=== PATIENT | female | born 1985 | race Caucasian/White ===

== ENCOUNTER 2021-02-03 14:29 | Emergency (ER) | payer OTHER ==
[~2021-02-03] VITALS: Ht 172.7 cm; Wt 61.8 kg
[2021-02-03] MEDS ORDERED: IOHEXOL 300 MG/ML 75 ML VIAL. IV ONE (15:00)
[2021-02-03] MEDS ORDERED: IV NORMAL SALINE 1,000ML 1,000 ML IV ONE (15:00)
[2021-02-03] MEDS ORDERED: DEXAMETHASONE SOD PHOS 10 MG/ML VIAL. IVP ONE (15:00)
[2021-02-03] MEDS ORDERED: KETOROLAC 15 MG/ML VIAL. IVP ONE (15:00)
--- NOTE | 2021-02-03 15:00 | PHYS DOC ---
Past History Past Medical History: No Pertinent History Past Surgical History: No Surgical History Smoking: Non-smoker Alcohol Use: None Drug Use: None General Adult EDM: Chief Complaint: SORE THROAT HPI: HPI: 35-year-old female presents to the emergency department complaining of sore throat for the past 7 days. She reports that she went to an urgent care over the weekend who gave her steroids that did not help her throat pain. She was never tested for strep throat and not put on any antibiotics. She reports progressive pain on the right side of her mouth extending into her jaw as well as increased pain with swallowing, today had problems with drinking some fluids. She has not noticed any voice change. She has a child who recently was diagnosed with vpov-cpul-tnx-mouth disease. The patient denies nausea, v omiting, fever, chills, chest pain, shortness of breath, or any other complaints. Patient is driving home. Review of Systems: Review of Systems: ROS otherwise negative except for what was mentioned in HPI Current Medications: Current Meds: Current Medications Medications (Trade) Dose Ordered Sig/Jen Start Time Stop Time Status Last Admin Dose Admin Dexamethasone Sodium Phosphate (Decadron) 10 mg 1X ONCE 02/03/21 15:00 02/03/21 15:01 UNV Allergies: Allergies: Allergies Coded Allergies Type Severity Reaction Last Updated Verified No Known Drug Allergies 02/03/21 No Physical Exam: PE: Constitutional: No acute distress, non-toxic appearance. HENT: Atraumatic, bilateral external ears normal, nose normal. Oropharynx with tonsilar and peritonsilar erythema, exudates seen in the right tonsil, there is left uvular shift, possible abscess is seen in the right peritonsilar space, left appears clear. Trismus is noted. Eyes: PERRLA, EOMI, conjunctiva normal, no discharge. Neck: Normal range of motion, supple, no stridor. Cardiovascular: Heart rate regular rhythm. 2+ radial pulses Lungs & Thorax: No respiratory distress, symmetrical expansion. Skin: Warm, dry. Extremities: No tenderness, no cyanosis, ROM intact, no edema. Neurologic: Alert and oriented X 3, normal motor function, normal sensory function, no focal deficits noted. Non ataxic gait. GCS 15. Psychologic: Affect normal, judgment normal, mood normal. Current Patient Data: Labs: Laboratory Tests Test 02/03/21 15:10 02/03/21 16:20 Group A Streptococcus Rapid Negative (NEGATIVE) Urine Test Negative (NEG) Vital Signs: Vital Signs Date Time Temp Pulse Resp B/P (MAP) Pulse Ox O2 Delivery O2 Flow Rate FiO2 02/03/21 14:30 97.9 56 18 111/68 (82) 98 Room Air Radiology/Procedures: Radiology/Procedures: CT neck with contrast History: Right-sided throat pain with shift of the uvula Axial helical images of the neck were obtained after the administration of 75 cc IV Isovue-370 contrast. Axial coronal and sagittal reconstruction was performed for a CT soft tissues neck with contrast. This study was performed to exclude possible abscess. Findings: There is an irregular peripherally enhancing fluid collection in the right palatine tonsil that measures 4.0 x 3.4 x 3.4 cm. There is no air. There is no prevertebral soft tissue swelling. The thyroid appears normal. Mild reversal of the normal cervical lordosis is seen. The epiglottis is normal. Impression: Right-sided tonsillitis and peritonsillar abscess. End impression PQRS Compliance Statement: One or more of the following individualized dose reduction techniques were utilized for this examination: 1. Automated exposure control 2. Adjustment of the mA and/or kV according to patient size 3. Use of iterative reconstruction technique Electronically signed by: Ho Arechiga III, MD (02/03/2021 3:44 PM) Incision and Drainage Procedure Time: 1600 Confirmed: Patient, procedure, side, and site correct. Consent: Patient has given verbal consent. Indication: Right peritonsillar abscess. Performed by: Joon Soto DO. Pre procedure exam: Circulation, motor, and sensory intact. Procedural sedation: None. Description: Location: Right peritonsillar area Anesthesia: Hurricaine spray topical Incision: 18-gauge needle decompression Technique: fluid collection was aspirated, 5 cc of jeanne pus was obtained, manually decompressed with suction catheter, wound probed with suction catheter. Drainage: 5 cc purulent. Post procedure exam: Circulation, motor, sensory examination intact. Patient tolerated: Well. Complications: None. Follow-up: Home care instructions given. Amoxicillin clavulanate, 10 days Total time: 15 minutes Heart Score: C/O Chest Pain: No Course & Med Decision Making: Course & Med Decision Making Patient diagnosed with a right peritonsillar abscess via CT scan. The abscess was drained at the bedside by me with 5 cc of jeanne pus expressed from the wound, area was actively draining, patient was observed for prior to discharge. Patient tolerated the procedure well, she she was improved after the aspiration of the abscess. She had no bleeding, felt much improved, was able to phonate much better, improved trismus and exam. She was given a dose of Unasyn in the emergency department and she will be given a prescription for Augmentin for 10 days. Advised follow-up with a primary care physician as well as ear nose and throat My Orders - JOON CARRILLO DO Procedure Category Date Status Time Dexamethasone Sod PHA 02/03/21 Complete Phos (Decadron) 15:00 Ct Soft Tissue Neck CT 02/03/21 Resulted W/Contrast 14:49 Urine Test JAMIE 02/03/21 In Process 14:49 Strep A Screen Rapid LAB 02/03/21 Complete 14:49 Ketorolac 15mg Vial PHA 02/03/21 Complete (Toradol 15mg Vial) 15:00 Iv Normal Saline PHA 02/03/21 Complete 1,000ml (Iv Sodium 15:00 Iohexol 300 Mg/Ml PHA 02/03/21 Complete (Omnipaque 300 Mg/Ml) 15:00 Ampicillin/Sulbactam PHA 02/03/21 In Process (Unasyn) 16:00 Benzocaine 20% PHA 02/03/21 Complete Mucosal (Hurricaine 16:00 Throat/Nose Culture SOPHIA 02/03/21 In Process 15:10 Departure Departure: Impression: Primary Impression: Peritonsillar abscess Disposition: HOME / SELF CARE / HOMELESS Condition: IMPROVED Referrals: LINWOOD BAEZ PAC (PCP) Patient Instructions: Peritonsillar Abscess, [id number] Additional Instructions: You are diagnosed with a peritonsillar abscess today, which is a collection of pus near the tonsil on the right in the back of the throat. The infection should continue to drain at home which is expected. You may eat and drink at y our convenience. You were given a dose of antibiotics in the emergency department and will be put on antibiotics for the next 10 days to help treat this infection. Please follow-up with your primary care doctor as well as an ear nose and throat doctor for follow-up. If you experience any further shortness of breath, excess bleeding, inability to eat or drink or worsening signs of infection including swelling of your mouth, shortness of breath, fever, chills or any other acute concerns please return to the emergency department ENT: [facility] [address], [place] [address] [facility] [address], [place] [address] Scripts Amoxicillin/Potassium Clav (AUGMENTIN 875-125 TABLET) 1 Each Tablet 1 TAB PO BID for Peritonsilar abscess for 10 Days, #20 TAB 0 Refills Prov: JOON CARRILLO DO 02/03/21 JOON CARRILLO DO Feb 03, 2021 15:00
--- NOTE | 2021-02-03 15:47 | RAD ---
CT neck with contrast History: Right-sided throat pain with shift of the uvula Axial helical images of the neck were obtained after the administration of 75 cc IV Isovue-[address] Axial coronal and sagittal reconstruction was performed for a CT soft tissues neck with contrast. This study was performed to exclude possible abscess. Findings: There is an irregular peripherally enhancing fluid collection in the right palatine tonsil that measu res 4.0 x 3.4 x 3.4 cm. There is no air. There is no prevertebral soft tissue swelling. The thyroid appears normal. Mild reversal of the barb l cervical lordosis is seen. The epiglottis is normal. Impression: Right-sided tonsillitis and peritonsillar abscess. End impression PQRS Compliance Statement: One or more of the following individualized dose reduction techniques were utilized for this examinat ion: 1. Automated exposure control 2. Adjustment of the mA and/or kV according to patient size 3. Use of iterative reconstruction technique Electronically signed by: Ho Arechiga III, MD (02/03/2021 3:44 PM) [facility]
[2021-02-03] MEDS ORDERED: AMPICILLIN/SULBACTAM 3 GM in IV NORMAL SALINE 100ML 100 ML IV ONE (16:00)
[2021-02-03] MEDS ORDERED: BENZOCAINE ONE 20% MUCOSAL SPRAY. MM (16:00)
[2021-02-03] MEDS ORDERED: AMOX1TAB61 PO (16:22)
[2021-02-03 16:47] LABS: U PREG PATIENT NEGATIVE (NEG)
[2021-02-03 17:21] VITALS: BP 118/69
== END 2021-02-03 17:26 | disposition home or self-care (01) ==
LOC: ER 14:29
DX: J36 Peritonsillar abscess (principal)
CPT/HCPCS: 42700; 70491; 81025; 87070; 87880; 96361; 96365; 96375; 99285; J0295; J1100; J1885; J7030; Q9967; 10160

== ENCOUNTER 2021-07-19 20:33 | Emergency (ER) | payer OTHER ==
[~2021-07-19] VITALS: Ht 172.7 cm; Wt 59.9 kg
[~2021-07-19 20:33] MED LIST: AMOX1TAB61 PO
--- NOTE | 2021-07-19 20:43 | PHYS DOC ---
Past History Past Medical History: No Pertinent History Past Surgical History: No Surgical History Additional Past Surgical Histo: TUBES IN EARS Smoking: Non-smoker Alcohol Use: None Drug Use: None General Adult EDM: Chief Complaint: BACK PAIN - NO INJURY HPI: HPI: ".. I having some lower back pain.. more on left.. it just law nagging.. " Patient is a 35 year old female who presents with above complaint and left lower back pain and some findings consistent with a sciatic exacerbation. Patient denies any specific history of trauma or falls. Patient denies any history of fever or chills. Patient denies any recent travel. Patient denies any dysuria. Patient normally follows with . Patient does not smoke or use drugs. Patient has had a normal stool today. Patient normally healthy. No history of immunosuppression. Has no problems with urination or defecation. Review of Systems: Review of Systems: Constitutional: Denies fever or chills Eyes: Denies change in visual acuity HENT: Denies nasal congestion or sore throat Respiratory: Denies cough or shortness of breath Cardiovascular: Denies chest pain or edema GI: Denies abdominal pain, nausea, vomiting, bloody stools or diarrhea : Denies dysuria Musculoskeletal: Complains of lower back pain Integument: Denies rash Neurologic: Denies headache, focal weakness or sensory changes Endocrine: Denies polyuria or polydipsia Lymphatic: Denies swollen glands Psychiatric: Denies depression or anxiety Family History: Family History: Noncontributory to presentation Current Medications: Current Meds: See nursing for home meds Allergies: Allergies: Allergies Coded Allergies Type Severity Reaction Last Updated Verified No Known Drug Allergies 02/03/21 No Physical Exam: PE: Constitutional: Well developed, well nourished, moderate acute distress, non- toxic appearance. [] HENT: Normocephalic, atraumatic, bilateral external ears normal, oropharynx moist, no oral exudates, nose normal. [] Eyes: PERRLA, EOMI, conjunctiva normal, no discharge. [] Neck: Normal range of motion, no tenderness, supple, no stridor. [] Cardiovascular:Heart rate regular rhythm, no murmur [] Lungs & Thorax: Bilateral breath sounds equal at apex auscultation [] Abdomen: Bowel sounds normal, soft, no tenderness, no masses, no pulsatile masses. [] Skin: Warm, dry, no erythema, no rash. [] Back: Lumbar sacral muscle tenderness, no CVA tenderness. [] Some tenderness over the left sciatic nerve. Extremities: No tenderness, no cyanosis, no clubbing, ROM intact, no edema. [] Neurologic: Alert and oriented X 3, normal motor function, normal sensory fun ction, no focal deficits noted. [] DTRs +2 patella and brachial. Patient is ambulatory without significant gait problems. Psychologic: Affect anxious, judgement normal, mood normal. [] EKG: EKG: [] Radiology/Procedures: Radiology/Procedures: [][address] [address] IMAGING REPORT Signed PATIENT: RJ ASHRAF ACCOUNT: [id number] : 1985 LOCATION: ER AGE: 35 SEX: F EXAM STATUS: REG ER ORD. PHYSICIAN: ALEX WELCH MD REASON: severe sciatica PROCEDURE: CT LUMBAR SPINE WO CONTRAST CT LUMBAR SPINE WO History:Reason: severe sciatica / Spl. Instructions: / History: Technique: Noncontrast CT was performed of the lumbar spine. Multiplanar reconstructions were performed. Exposure: One or more of the following individualized dose reduction techniques were utilized for this examination: 1. Automated exposure control 2. Adjustment of the mA and/or kV according to patient size 3. Use of iterative reconstruction technique. Comparison: None Findings: Normal vertebral body height and alignment. No fracture. T12-L1: No canal or neuroforaminal narrowing. L1-L2: Small disc bulge. No canal or neuroforaminal narrowing. L2-L3: Small disc bulge. No canal or neuroforaminal narrowing. L3-L4: Broad-based disc bulge. Mild facet arthropathy. Ligament of flavum thickening. No canal narrowing. Mild subarticular recess narrowing. Mild right neuroforaminal narrowing. L4-L5: Left paracentral disc extrusion. Mild facet arthropathy. Ligament thickening. Mild canal narrowing. Subarticular recess narrowing, left greater than right. Probable displacement of the left descending L5 nerve root. Mild bilateral neuroforaminal narrowing. L5-S1: Broad-based disc bulge. Mild facet arthropathy. No canal narrowing. Mild bilateral neuroforaminal narrowing. Impression: 1. Multilevel lumbar spondylosis most prominent L4-5. 2. L4-L5 left paracentral disc extrusion contributing to mild canal narrowing with probable displacement of the left descending L5 nerve root correlate for radiculopathy. MRI can better evaluate if clinically indicated. Electronically signed by: Yordan Rashid DO (07/19/2021 9:51 PM) [facility] DICTATED AND SIGNED BY: YORDAN RASHID DO DATE: 07/19/212146 CC: ALEX WELCH MD; LINWO[facility] BAEZ PAC ~MTH0 0 Heart Score: C/O Chest Pain: N/A Risk Factors: Risk Factors: DM, Current or recent (<one month) smoker, HTN, HLP, family history of CAD, obesity. Risk Scores: Score 0 - 3: 2.5% MACE over next 6 weeks - Discharge Home Score 4 - 6: 20.3% MACE over next 6 weeks - Admit for Clinical Observation Score 7 - 10: 72.7% MACE over next 6 weeks - Early Invasive Strategies Course & Med Decision Making: Course & Med Decision Making Pertinent Labs and Imaging studies reviewed. (See chart for details) Patient consider physical therapy. Use ice packs as needed for the next 3 days. Follow-up with primary. Take Tylenol and ibuprofen for pain. For marked muscle spasms consider Flexeril 5 to 10 mg up to 3 times a day. Consider use of pain patches [id number] lidocaine. If no reinjury may use moist heat after day 3. Did discuss patient CT findings of facet arthropathy and paracentral disc disease particularly at L4-L5 and L5-S1. Patient consider follow-up with neurosurgery. May need an MRI to fully evaluate nerve root for radiculopathy complaints Impression: 1. Sciatica left 2. Multiple level- Neuroforaminal narrowing and paracentral disc extrusion- primary area of concern is L4-L5 L5-S1. [] Dragon Disclaimer: Rosa Disclaimer: This electronic medical record was generated, in whole or in part, using a voice recognition dictation system. Departure Departure: Referrals: LINWOOD BAEZ PAC (PCP) Scripts Cyclobenzaprine Hcl (CYCLOBENZAPRINE HCL) 10 Mg Tablet 10 MG PO TID for muscle spasms, #30 TAB Prov: ALEX WELCH MD 07/19/21 Dragon Disclaimer This chart was dictated in whole or in part using Voice Recognition software in a busy, high-work load, and often noisy Emergency Department environment. It may contain unintended and wholly unrecognized errors or omissions. ALEX WELCH MD Jul 19, 2021 20:43
[2021-07-19] MEDS ORDERED: ORPHENADRINE CITRATE 60 MG/2 ML VIAL. IM ONE (21:15)
[2021-07-19] MEDS ORDERED: KETOROLAC 60 MG/2 ML VIAL. IM ONE (21:15)
[2021-07-19 21:28] LABS: BACTERIA,URINE 0 /HPF (0-FEW); CLARITY,URINE CLEAR; COLOR,URINE YELLOW; GLUCOSE,URINE NEG (NEG); NITRITE,URINE NEG (NEG); RBC,URINE 0 /HPF (0-2); SQUAMOUS EPITHELIAL CELL,UR FEW /LPF; UROBILINOGEN,URINE 0.2 mg/dL (0.2 mg/dL)
[2021-07-19 21:32] LABS: BARBITURATES NEG (NEG); BENZODIAZEPINES NEG (NEG); CANNABINOIDS NEG (NEG); COCAINE NEG (NEG); METHADONE NEG (NEG); OPIATES NEG (NEG); PHENCYCLIDINE NEG (NEG)
[2021-07-19 21:34] LABS: AMPHETAMINE/METHAMPHETAMINE NEG (NEG)
--- NOTE | 2021-07-19 21:53 | RAD ---
CT LUMBAR SPINE WO History:Reason: severe sciatica / Spl. Instructions: / History: Technique: Noncontrast CT was performed of the lumbar spine. Multiplanar reconstructions were perform ed. Exposure: One or more of the following individualized dose reduction techniques were utilized for thi s examination: 1. Automated exposure control 2. Adjustment of the mA and/or kV according to patient size 3. Use of iterative reconstruction technique. Comparison: None Findings: Normal vertebral body height and alignment. No fracture. T12-L1: No canal or neuroforaminal narrowing. L1-L2: Small disc bulge. No canal or neuroforaminal narrowing. L2-L3: Small disc bulge. No canal or neuroforaminal narrowing. L3-L4: Broad-based disc bulge. Mild facet arthropathy. Ligament of flavum thickening. No canal narro wing. Mild subarticular recess narrowing. Mild right neuroforaminal narrowing. L4-L5: Left paracentral disc extrusion. Mild facet arthropathy. Ligament thickening. Mild canal narr owing. Subarticular recess narrowing, left greater than right. Probable displacement of the left desc ending L5 nerve root. Mild bilateral neuroforaminal narrowing. L5-S1: Broad-based disc bulge. Mild facet arthropathy. No canal narrowing. Mild bilateral neuroforam inal narrowing. Impression: 1. Multilevel lumbar spondylosis most prominent L4-5. 2. L4-L5 left paracentral disc extrusion contributing to mild canal narrowing with probable displace ment of the left descending L5 nerve root correlate for radiculopathy. MRI can better evaluate if cli nically indicated. Electronically signed by: Yordan Rashid DO (07/19/2021 9:51 PM) [facility]
[2021-07-19] MEDS ORDERED: CYCL10TA19 PO (22:41)
[2021-07-19 23:05] VITALS: BP 110/71
== END 2021-07-19 23:05 | disposition home or self-care (01) ==
LOC: ER 20:33
DX: M54.42 Lumbago with sciatica, left side (principal); M51.27 Other intervertebral disc displacement, lumbosacral region
CPT/HCPCS: 36415; 72131; 80307; 81001; 81025; 87077; 87086; 87186; 96372; 99284; J1885; J2360